=== PATIENT | male | born 1980 ===

== ENCOUNTER → 2024-11-29 15:27 | Outpatient (BNVA) | payer MEDICAID, SELFPAY | PROVIDERS: Visit Provider Podiatrist Foot & Ankle Surgery | DX: M79.89 Other specified soft tissue disorders; E11.8 Type 2 diabetes mellitus with unspecified complications; B35.3 Tinea pedis; Z79.84 Long term (current) use of oral hypoglycemic drugs; S91.302A Unspecified open wound, left foot, initial encounter; X58.XXXA Exposure to other specified factors, initial encounter | CPT/HCPCS: 73630; 87070; 87075; 87077; 87186; 87205 ==

== ENCOUNTER 2024-12-10 10:51 | Outpatient (CLI) | payer MEDICAID, SELFPAY ==
--- NOTE | 2024-12-10 11:00 | MRR_ITS ---
PROCEDURE INFORMATION: Exam: MR Left Lower Extremity Other Than Joint Without Contrast; Foot Exam date and time: 12/10/2024 11:10 AM Age: 44 years old Clinical indication: Possible mass on the lateral side of the left heel/ankle area since August 2024; Additional info: Soft tissue mass TECHNIQUE: Imaging protocol: Magnetic resonance imaging of the left lower extremity without contrast. Exam focused on the foot. COMPARISON: No relevant prior studies available. FINDINGS: Bones/joints: Ankle mortise alignment is normal. Articular cartilage is normal. No joint effusion. There is no bone marrow edema. LIGAMENTS: Anterior talofibular ligament: Anterior talofibular ligament is intact. Posterior talofibular ligament: Posterior talofibular ligament is intact. Calcaneofibular ligament: Calcaneofibular ligament is intact. Deltoid ligament complex: Deltoid ligament is intact. Lisfranc ligament: Lisfranc ligament is intact. TENDONS: Flexor tendons of foot: Unremarkable. No evidence of tear. Tibialis posterior tendon: Unremarkable as visualized. Peroneal tendons: Unremarkable as visualized. Extensor tendons of foot: Unremarkable. No evidence of tear. Tibialis anterior tendon: Unremarkable as visualized. Achilles tendon: Achilles tendon is normal. Tarsal canal (Sinus tarsi): Tarsal sinus is normal. Tarsal tunnel: Tarsal tunnel is normal. Soft tissues: At the site of palpable abnormality marked on the skin in the lateral hindfoot is an intradermal high T2 low T1 signal intensity nodule measuring 9 x 5 x 7 mm. No surrounding edema. Plantar fascia: Plantar fascia is normal. MR/MR foot LT wo con* [id number] IMPRESSION: 9 mm intradermal nodule at the site of palpable abnormality in the lateral hindfoot. Nonspecific finding. Possible epidermal inclusion cyst, sebaceous cyst or dermal appendage tumor. The finding could be more definitively evaluated with ultrasound if clinically indicated.
== END 2024-12-10 10:52 | disposition home or self-care (01) ==
PROVIDERS: Visit Provider Podiatrist Foot & Ankle Surgery
DX: M79.89 Other specified soft tissue disorders (principal)
CPT/HCPCS: 73718

== ENCOUNTER 2025-01-03 07:10 | Day surgery (SDC) | payer MEDICAID, SELFPAY ==
[2025-01-03] VITALS (8 sets, daily range): BP systolic 103–132; BP diastolic 65–86; PULSE 52–65; RESP 16–18; TEMP 36.1–36.6; O2SAT 91–97
[2025-01-03] MEDS: acetaminophen 1,000 MG/100 ML PIGGYBACK 400 MG IV (07:28)
[2025-01-03] MEDS: sodium chloride 0.9% 1,000 ML 30 ML IV (07:29)
--- NOTE | 2025-01-03 07:34 | W.PM.OPSUD ---
Surgery/Procedure H&P Update DATE OF PROCEDURE: January 03, 2025 DATE H&P PERFORMED: 12/20/24 H&P UPDATE INFORMATION: I have reviewed H&P completed within last 30 days, I have examined patient prior to procedure, No changes to prior documentation and H&P is in [facility] on date indicated PREOP DIAGNOSIS: Left foot soft tissue mass PLANNED PROCEDURE: Operation Date: 01/03/25 08:25 Proposed Procedures p Soft tissue mass excision left foot(Left) - Ryan Banks DPM
--- NOTE | 2025-01-03 07:38 | ANES.PREANE2 ---
Pre-Anesthetic Assessment Height/Weight: Height 5 ft 8 in Weight 275 lb Temp Pulse Resp BP Pulse Ox O2 Del Method 97.8 F 58 L 18 129/81 96 Room Air 01/03/25 07:20 01/03/25 07:20 01/03/25 07:20 01/03/25 07:20 01/03/25 07:20 01/03/25 07:20 Preop Diagnosis: Left foot soft tissue mass Operation Date: 01/03/25 08:25 Proposed Procedures p Soft tissue mass excision left foot(Left) - DANILO JangM Was Beta Katalina taken within 24 hours: N/A Was Clonidine taken within 24 hours: N/A Last intake: Intake Last Liquid Date 01/02/25 Last Liquid Time 21:00 Last Solid Date 01/02/25 Last Solid Time 20:00 Social No alcohol and No tobacco Quit smoking a few years ago Exam alert, oriented x 3, clear to auscultation bilaterally and regular rate & rhythm Airway Submandibular: within normal limits Cervical ROM: within normal limits Mallampati: Class II Dentition: full Anesthetic Plan ASA status: 3 Anesthesia: MAC Other: No prior issues with anesthesia NPO since yesterday evening History of CAD, CHELA placed 2 years ago. On chronic Plavix. Last taken 12/30/2024 History of hypertension on losartan Denies any pulmonary issues BMI 41 METs greater than 4 Plan for MAC anesthesia with local via surgeon Medications/Allergies Home Medications ?Medication ?Instructions ?Recorded ?Confirmed ?Last Taken ?Type aspirin 81 mg tablet,delayed 81 mg PO DAILY 11/29/24 12/31/24 12/30/24 History release (Adult Aspirin Regimen) atorvastatin 20 mg tablet 20 mg PO DAILY 11/29/24 12/31/24 12/31/24 History carvedilol 25 mg tablet 25 mg PO BID 11/29/24 12/31/24 01/03/25 History clopidogrel 75 mg tablet 75 mg PO DAILY 11/29/24 12/31/24 12/30/24 History losartan 25 mg tablet 25 mg PO DAILY 11/29/24 12/31/24 12/31/24 History hydrocodone 5 mg-acetaminophen 325 1 tab PO Q6H PRN pain #12 tabs 01/03/25 Unknown Rx mg tablet Allergies Allergy/AdvReac Type Severity Reaction Status Date / Time No Known Allergies Allergy Unverified 12/20/24 16:15 Current Medications Generic Name Dose Route Start Last Admin Trade Name Freq PRN Reason Stop Dose Admin Sodium Chloride 1,000 mls @ 30 mls/hr 01/03/25 07:15 01/03/25 07:29 Sodium Chloride 0.9% IV 01/04/25 07:14 30 mls/hr .Q24H LESLY Administration PFSH Anesthesia Social History Smoking and tobacco/nicotine status: former use of tobacco/nicotine Data Anesthesia Cardiac Studies: No Data to Display
[2025-01-03] MEDS: gabapentin 300 mg Capsule PO (07:41)
[2025-01-03] MEDS: ceFAZolin 3,000 MG in sodium chloride 0.9% (plus) 100 ML 200 MG IV (07:50)
[2025-01-03] MEDS: BUPivacaine 0.5% INJ 30 mL INJECTION (08:14)
--- NOTE | 2025-01-03 08:36 | P.BOP_ITS ---
Date of procedure: 01/03/2025 Surgeon name: Dr. Ryan Banks D.P.M. Miscellaneous Machine Operator(s) name(s): La Procedure(s) performed: Soft tissue mass excision left foot Description of findings: Hypergranular soft tissue mass left foot Estimated blood loss: 2 cc Tourniquet time: 19 minutes Specimen(s) removed: Soft tissue mass left foot, cultures left foot Post-operative diagnosis: Soft tissue mass left foot
--- NOTE | 2025-01-03 08:37 | P.OP_ITS ---
Operative Report Date of procedure: January 03, 2025 Surgeon: Ryan Banks DPM Procedure: Date of procedure: 01/03/2025 Pre-op diagnosis: Soft tissue mass left foot Post-op diagnosis: Same Post-op findings: Hypergranular soft tissue mass left foot Procedure done: Soft tissue mass excision left foot CPT Implants: None Specimens removed: Soft tissue mass left foot, cultures aerobic and anaerobic Surgeon: Dr. Ryan Banks DPM Sample Finisher: La Estimated blood loss: 2 cc Tourniquet time: 19 minutes Complications: None Patient is a 44 [id number] male that has a history of soft tissue mass left foot. The patient has had the aforementioned chief complaint for some time. Conservative treatment measures have been attempted and the patient has opted for surgical intervention at this time. A lengthy discussion regarding the pro cedure, including risks and complications has been had with the patient and is noted in the recent clinic note. Written and verbal consent have been obtained. All patient questions have been answered to the patient?s satisfaction. No written or verbal guarantees have been given or implied. The patient has been NPO since midnight. The history has been reviewed and the history and physical is current. The signed consent was confirmed and placed in the patient chart. Patient imaging has been reviewed and is consistent with the diagnosis. Under mild sedation, the patient was brought into the operating room and placed on the table in the supine position. IV antibiotics were given by the anesthesia team as preoperative surgical prophylaxis. MAC sedation was then performed by the anesthesiateam. A pneumatic tourniquet was then placed about the left ankle. A local field block was performed using 0.5% Marcaine plain. The operative extremity was then prepped and draped in the usual fashion. The extremity was then elevated and exsanguinated before the tourniquet was inflated to 250 mmHg. After inflation, the following procedure was then performed. Attention was directed to the lateral aspect of the left foot where hypergranular soft tissue mass was noted on the lateral aspect of the calcaneus. #15 blade was used to make an elliptical incision around the soft tissue mass. Dissection was carried down through subcutaneous tissue to remove the soft tissue mass in its entirety. The soft tissue mass did not appear to extend deep within the subcutaneous tissue. No visible stock was present. The mass in total measured 1.7 x 0.5 x 0.3 cm. The mass was removed from the operative field and sent as specimen. Cultures aerobic and anaerobic were taken of soft tissues at this point. No underlying abscess or signs of infection was appreciated. Remaining tissue appeared healthy and viable. No further soft tissue mass was visualized. The site was irrigated with copious amounts of sterile saline. Attention was then directed to closure. Deep and subcuticular closure was performed using 3-0 Vicryl. Skin was closed with combination of 2-0 Prolene and 3-0 nylon. Incision site was dressed with Xeroform, 4 x 4 gauze, Kerlix, Guero. The tourniquet was let down good hyperemic response was noted all digits of the left foot. The patient tolerated the procedure and anesthesia well and without complication. The patient was transported from the operating room to the recovery room with vital signs stable and vascular status intact to all digits of the left foot. The patient was given both written and verbal instructions to remain minimally weightbearing in postop shoe to the operative extremity, to keep dressings/splint clean, dry and intact and to take pain medication as directed. The patient will follow-up in the outpatient setting at their scheduled appointment. The patient was discharged with my personal number and was instructed to call if any questions or issues should arise. They were discharged home once anesthesia criteria was met.
--- NOTE | 2025-01-03 09:30 | ANE.PACU2 ---
Inpatient post-anesthesia follow up: Airway intact: Yes Vital signs: Temperature 97.3 F Pulse Rate 52 Respiratory Rate 16 Blood Pressure 126/77 Pulse Oximetry 93 Oxygen Delivery Me thod Room Air Oxygen Flow Rate 2.5 Fraction of Inspir ed Oxygen Hydration adequate: Yes Nausea and vomiting: No Pain level: 1 Mental status: Baseline
== END 2025-01-03 09:30 | disposition home or self-care (01) ==
PROVIDERS: Visit Provider Podiatrist Foot & Ankle Surgery
PROC: (CPT 28039; principal; 2025-01-03 08:15)
DX: L98.0 Pyogenic granuloma (principal); D18.01 Hemangioma of skin and subcutaneous tissue; I25.10 Atherosclerotic heart disease of native coronary artery without angina pectoris; Z79.02 Long term (current) use of antithrombotics/antiplatelets; I10 Essential (primary) hypertension; Z79.899 Other long term (current) drug therapy; Z79.82 Long term (current) use of aspirin; Z87.891 Personal history of nicotine dependence
CPT/HCPCS: 28039; 87070; 87075; 87077; 87176; 87186; 87205; 88307; J0131; J0690; J2704; J3010; J3490; J7030

== ENCOUNTER → 2025-01-17 15:14 | Outpatient (BNVA) | payer MEDICAID, SELFPAY | PROVIDERS: Visit Provider Podiatrist Foot & Ankle Surgery | DX: Z98.890 Other specified postprocedural states (principal) | CPT/HCPCS: 87070; 87075; 87186; 87205 ==